=== PATIENT | female | born 1990 | race Caucasian/White ===

== ENCOUNTER 2017-09-09 03:08 | Inpatient (IN) | payer OTHER ==
[~2017-09-09] VITALS: Ht 157.5 cm; Wt 72.6 kg
--- NOTE | 2017-09-09 14:07 | Operative Report ---
Operative/Inv Procedure Report Surgery Date: 09/09/17 Name of Procedure: Exploratory laparotomy laparoscopy bilateral ovarian cystectomy reconstruction of right and left ovaries peritoneal washings removal of stents Pre-Operative Diagnosis: Bilateral pelvic masses Post-Operative Diagnosis: Bilateral dermoid cysts Estimated Blood Loss: 50ml to 100ml Surgeon/Director Of State: Ryan BLANCO,Yuliana Mckeon MD Anesthesia: general endotracheal tube, block Operative/Procedure Note Note: Incisional patient was seen in the operating room placed prone position after adequate anesthesia was induced composition. Respiratory fashion bladder was catheterized on initial anesthesia performed at this point states his diagnosis and need conservative stone tract inserted cervix was placed the cone cannula surgeon regowned and gloved at the level of the umbilicus a stab incision was made to allow for the intraperitoneal the abdomen was insufflated possibly for his CO2 delivered stones which point the Veress needle was removed millimeter trocar was inserted atraumatically (that she laparoscope placed under direct visualization a 5 mm port was placed to prevent subsidence. A Pfannenstiel skin incision patient tolerated this well. Incision was made in the left ovary was drained of approximately 400 mL of clear fluid on this point the right ovarian cyst was picked up examined and found to be complex this point the plan was made to convert to an exploratory laparotomy pelvis was removed and the abdomen the incision the umbilicus was sewn using 0 skin was reapproximated with several dressings applied sepsis pubis and midline skin was cut was carried of the rectus fascia was carried down to the peritoneum which was dissected bluntly as well as sharply Soto, was placed in usual fashion patient placed in Trendelenburg left ovary was picked up clamped with a Viri 3 the cyst was removed to the base of the dermoid and normal ovarian tissue the ovary was reconstructed with 4 interrupted and running lock hemostasis was apparent this point the right ovary was picked up the cyst was removed using a Bovie consistent with dermoid fat and hair the ovary was reconstructed using 4-0 running locking suture on the wound was irrigated copiously with warm saline 35 this point Haritha was 8 applied to the ovaries and for hemostasis and to prevent adhesions peritoneum was reapproximated to the specimen from the abdomen using 0 partial was reapproximated to continue sutures #1 skin was approximated samir indicates cone cannula was removed the sensor bilaterally taken The central remained in place patient was returned Spot position she was awakened from anesthesia extubated transferred recovery room wake OR with counts correct Findings: Normal-size uterus was normal anatomy 15 cm globular multiloculated left ovarian cyst consistent with dermoid handset remnant ovary on the left normal right 6 cm dermoid cyst normal ovary otherwise normal tubes bilaterally normal uterus otherwise normal anatomy no free fluid pelvic excrescences
[2017-09-10 08:00] LABS: ABSOLUTE BASOPHIL COUNT 0 /CUMM (0.0-0.2); ABSOLUTE EOSINOPHIL COUNT 0 /CUMM (0.0-0.7); ABSOLUTE MONOCYTE COUNT 1.2 /CUMM (0.10-0.60); EOSINOPHIL % 0.1 % (0-5); GRANULOCYTE % 74.8 % (42.2-75.2)
[2017-09-10 08:02] VITALS: BP 110/60
[2017-09-10 08:10] LABS: ABSOLUTE GRANULOCYTE CT 11.2 /CUMM (1.4-6.5); ABSOLUTE LYMPH COUNT 2.5 /CUMM (1.2-3.4); BASOPHIL % 0.3 % (0.0-2.0); MEAN CORPUSCULAR HGB 30.1 PG (27.0-31.0); MEAN CORPUSCULAR HGB CONC 34.3 G/DL (33.0-37.0); MEAN CORPUSCULAR VOLUME 87.8 FL (81.0-99.0); PLATELET COUNT 282 /CUMM (130-400); RBC DISTRIBUTION WIDTH 12.7 % (11.5-14.5); RED BLOOD CELL CT 3.76 /CUMM (4.20-5.40)
[2017-09-10 08:13] LABS: WHITE BLOOD CELL COUNT 14.9 /CUMM (4.8-10.8)
[2017-09-10] MEDS ORDERED: IBUPROFEN800 M1 PO (09:33)
[2017-09-10] MEDS ORDERED: PERCOCET 5-3251 EACH PO (09:33)
--- NOTE | 2017-09-10 09:37 | PN- Post Delivery/GYN ---
Subjective Subjective: POSITIVE FLATU Objective Last 24 Hrs of Vital Signs/I&O Vital Signs Date Time Temp Pulse Resp B/P B/P Pulse O2 O2 Flow FiO2 Mean Ox Delivery Rate 09/10 0802 110/60 Physical Exam: PE THIN WF IN NAD ABD SOFT NT INCISION CDI EXT -EDEMA-HOMANS Assessment/Plan Assessment/Plan ASSESS S/P EXP LAP BILATERAL CYSTECTOMY PLANNCONT POC
--- NOTE | 2017-09-11 11:10 | Surgical Discharge Summary ---
Visit Information Visit Dates Admission Date: 09/09/17 Discharge Date: 09/11/17 History of Present Illness Chief Complaint: Pelvic masses Medical History Blood Transfusion Hx: No Neurological: NONE EENT: NONE Cardiovascular: NONE Respiratory: NONE Gastrointestinal: NONE Hepatic: NONE Renal: NONE Musculoskeletal: NONE Psychiatric: NONE Endocrine: NONE Blood Disorders: NONE Cancer(s): NONE WELD INSPECTOR/Reproductive: History of dermoids History of MRSA: No History of VRE: No History of CDIFF: No Isolation History: Standard Pneumonia Vaccine Status: Unknown if ever received Influenza Vaccine: 09/11/17 Influenza Vaccine Status Given in past- Date Above Surgical History Pertinent Surgical History: Ovarian cystectomy Psychosocial History Where Do You Live? Home Who Do You Live With? Family Services at Home: None What is Your Primary Language? Congolese Tobacco History: NA ETOH Use: denies use Illicit Drug Use History: NA Other Addictive Behavior: NA Review of Systems: Denies nausea Denies vomiting Mild bloating Hospital Course Course Attending Physician: Yuliana Davis MD Primary Care Physician: Patient Has No Primary Care Dr Hospital Course: S/p Exlap and bilateral ovarian cystectomy and stent placement and removal without complications Complications: None Allergies: Uncoded Allergies: Allergy Other NKA Med Allergies NKA Significant Procedures: Exlap Bilateral ovarian cystectomy Stent placement and removal Pertinent Lab Results: Hct 34 WBC 14.9 without shift Uculture negative Disposition Summary Disposition Principal Diagnosis: Ovarian dermoids bilaterally Additional Diagnosis: none Discharge Disposition: home or self care Discharge Instructions General Discharge Information Code Status: Full Code Patient's Diet: Regular Patient's Activity: As tolerated Follow-Up Instructions/Appts: With Dr Davis for staple removal one week Medications at Discharge Discharge Medications: Start taking the following new medications: Ibuprofen (Ibuprofen) 800 MG TABLET 800 Milligram ORAL EVERY SIX HOURS NEEDED as needed for PAIN Qty = 30 No Refills Comments: Last Taken:09/11/17 Time:0800 Oxycodone HCl/Acetaminophen (Percocet 5-325 MG Tablet) 5 MG-325 MG TABLET 1 Tablet ORAL EVERY 4 HOURS NEEDED as needed for PAIN Qty = 30 No Refills Comments: Last Taken:09/10/17 Time:2335 Copies To: Ryan BLANCO,Yuliana De Souza Attending Review Statement Attending Statement Attending Statement: examined this patient, discussed with family, discussed w/nursing Attending Assessment/Plan: Seen and evaluated Aox3 Lungs clear Abdomen soft and positive bowel sounds wound intact Neuro. Grossly intact motor and sensory upper and lower extremities No cvat Ext. No homans. A/p Pod#2 s/p repeat ovarian cystectomy Pain mgmt strategies reviewed. Use of binder reviewed. Nutritional counseling reviewed VTE risks reviewed and wound care instructions reviewed To follow up for fertility assessment per patient given repeat cystectomy as she states she was having vasomotor symptoms. For staple removal one week.
== END 2017-09-11 11:33 | DRG 743 ==
LOC: STS 03:08 → GNO 12:30 → PACUH 12:30 → EDBEDREQ 13:06 → ENRESERV 13:16 → ENTRNSPT 15:18 → EDTRNSPTSTS 15:24 → GNO 15:30 → CMPTRNSPT 15:43 → GNO 09-11 11:33
PROVIDERS: Specialist
PROC: 0UB20ZX Excision of Bilateral Ovaries, Open Approach, Diagnostic (ICD-10-PCS; principal; 2017-09-09)
PROC: 0T788DZ Dilation of Bilateral Ureters with Intraluminal Device, Via Natural or Artificial Opening Endoscopic (ICD-10-PCS; 2017-09-09)
DX: D27.0 Benign neoplasm of right ovary (principal); D27.1 Benign neoplasm of left ovary
CPT/HCPCS: 81025; 87086; C9399; J0131; J0694; J1170; J1200; J1650; J1885; J2405